=== PATIENT | male | born 1950 | race Caucasian/White ===

== ENCOUNTER 2023-04-18 10:47 | Outpatient (CLI) | payer MEDICARE ==
[2023-04-18 12:21] LABS: #Basophils 0.1 10x3/uL (0.0-0.2); #Eosinphils 0.1 10x3/uL (0.0-0.5); #Monocytes 0.8 10x3/uL (0.0-1.1); #Neutrophils 4.1 10x3/uL (1.5-8.4); %Basophils 0.9 % (0.0-2.0); %Eosinophils 2.2 % (0.0-6.0); %Lymphocytes 19.9 % (18.0-47.0); %Monocytes 12.2 % (0.0-10.0); %Neutrophils 64.5 % (40.0-75.0); Hematocrit 37.9 % (38.8-50.0); Hemoglobin 12.2 g/dL (13.5-17.5); Mean Corpuscular HGB CONC 32.2 g/dL (32.0-36.0); Mean Corpuscular Hemoglobin 28.6 pg (27.0-33.0); Mean Platelet Volume 11.2 fl (7.4-10.4); Platelet Count 203 10x3/uL (150-450); Red Blood Cell (RBC) Count 4.26 10x6/uL (4.32-5.72); White Blood Cell (WBC) Count 6.4 10x3/uL (3.5-10.5)
[2023-04-18 12:36] LABS: Anion Gap 13 mmol/L (10-20); BUN (Urea Nitrogen) 21 mg/dL (8.4-25.7); Calc. Creatinine Clearance 0 mL/min (70-130); Calcium 9.2 mg/dL (7.8-10.44); Carbon Dioxide 23 mmol/L (23-31); Chloride 110 mmol/L (98-107); Estimated GFR 85; Glucose 96 mg/dL (83-110); Potassium 4.4 mmol/L (3.5-5.1); Sodium 142 mmol/L (136-145)
== END 2023-04-18 10:48 | disposition home or self-care (01) ==
LOC: LABBT 10:47
PROVIDERS: ATTEND Orthopaedic Surgery
DX: Z01.818 Encounter for other preprocedural examination (principal); M75.101 Unspecified rotator cuff tear or rupture of right shoulder, not specified as traumatic
CPT/HCPCS: 71046; 80048; 85025; 85610; 93005; 93010

== ENCOUNTER 2023-05-14 09:31 | Day surgery (SDC) | payer MEDICARE ==
[2023-04-18 11:32] VITALS: BMI 20.5
[2023-05-14] MEDS ORDERED: Midazolam HCl 2 mg/2 ml Vial ONE (11:15)
[2023-05-14] MEDS ORDERED: fentaNYL 50 mcg/mL 1 mL Vial ONE (11:15)
[2023-05-14] MEDS ORDERED: Ropivacaine 0.2% HCl/PF 20 ML ONE (11:16)
[2023-05-14] MEDS ORDERED: Ropivacaine 0.5% HCl/PF (150 MG/30 ML VIAL) ONE (11:16)
[2023-05-14] MEDS ORDERED: HYDROcodone/Acetaminophen 10/325 mg Tablet PO PRN ×2 (12:00)
[2023-05-14] MEDS ORDERED: Ondansetron PF 4 MG/2 ML Vial IVP PRN (12:00)
[2023-05-14] MEDS ORDERED: Promethazine HCl 25 MG/ML VIAL IM PRN (12:00)
[2023-05-14] MEDS ORDERED: Ropivacaine 0.2% 550 ML 550 ML NERVE BLCK SCH (12:00)
[2023-05-14] MEDS ORDERED: Ketorolac Tromethamine 30 MG/ML VIAL IVP SCH (12:00)
[2023-05-14] MEDS ORDERED: traMADol HCl 50 MG TAB PO PRN ×2 (12:00)
[2023-05-14] MEDS ORDERED: Zolpidem Tartrate 5 MG TAB PO PRN (12:00)
[2023-05-14] MEDS ORDERED: Rocuronium Bromide 10 MG/ML (10ML VIAL) ONE ×2 (12:17→12:24)
[2023-05-14] MEDS ORDERED: Ondansetron PF 4 MG/2 ML Vial ONE ×2 (12:17→12:24)
[2023-05-14] MEDS ORDERED: PHENYLEPHRINE-NS 100 MCG/ML 10 ML SYRINGE ONE ×2 (12:17→12:56)
[2023-05-14] MEDS ORDERED: Dexamethasone 20 MG/5 ML VIAL ONE ×2 (12:17→12:24)
[2023-05-14] MEDS ORDERED: ePHEDrine Sulfate 50 MG/10 ML VIAL ONE ×3 (12:17→14:02)
[2023-05-14] MEDS ORDERED: PROPOFOL 200 MG/20 ML VIAL ONE (12:17)
[2023-05-14] MEDS ORDERED: Lidocaine 1% PF 5 ML VIAL ONE ×2 (12:17→12:24)
[2023-05-14] MEDS ORDERED: PROPOFOL 20 ML ONE (12:23)
[2023-05-14] MEDS ORDERED: fentaNYL PF 100 MCG/2 ML SYRINGE ONE (12:23)
[2023-05-14] MEDS ORDERED: CEFAZOLIN 2 GM VIAL ONE (12:33)
[2023-05-14] MEDS ORDERED: Sodium Chloride 0.9% 100 ML ONE (12:33)
[2023-05-14] MEDS ORDERED: Bupivacaine 0.25% HCL 30 ML VIAL ONE (13:16)
[2023-05-14] MEDS ORDERED: EPINEPHrine 1 MG/ML VIAL ONE (13:16)
== END 2023-05-14 17:13 | disposition home or self-care (01) ==
LOC: SDC 09:31
PROVIDERS: ATTEND Orthopaedic Surgery
PROC: 0RNJ4ZZ Release Right Shoulder Joint, Percutaneous Endoscopic Approach (ICD-10-PCS; principal; 2023-05-14)
PROC: 0LS30ZZ Reposition Right Upper Arm Tendon, Open Approach (ICD-10-PCS; 2023-05-14)
DX: S46.211A Strain of muscle, fascia and tendon of other parts of biceps, right arm, initial encounter (principal); M75.101 Unspecified rotator cuff tear or rupture of right shoulder, not specified as traumatic; M25.311 Other instability, right shoulder; I10 Essential (primary) hypertension; E78.5 Hyperlipidemia, unspecified; Z87.891 Personal history of nicotine dependence; X58.XXXA Exposure to other specified factors, initial encounter
CPT/HCPCS: 24340; 29826; 29827; A4306; C1713 ×3; J0171; J3010; J1100; J2250; J2405; J2704; J2795; J3490; S0020